=== PATIENT | male | born 1995 | race Caucasian/White ===

== ENCOUNTER 2018-04-08 15:50 | Emergency (ER) | payer BC ==
[2018-04-08 16:13] VITALS: BP 118/64
[2018-04-08] MEDS ORDERED: Lidocaine 1%* 5 ML VIAL INJ ONE (16:31)
--- NOTE | 2018-04-08 16:33 | UC ---
General HPI - HPI Summary HPI Summary: cut R brow just [employer] while wrestling at [facility]. [place] sent here for stitches. No MANN, Neck pain or LOC. Tetanus is UTD. - History of Current Complaint Chief Complaint: UCLaceration Stated Complaint: RIGHT SIDE FACIAL LACERATION Time Seen by Provider: 04/08/18 16:27 Hx Obtained From: Patient Onset/Duration: Sudden Onset Timing: Constant Pain Intensity: 2 Associated Signs & Symptoms: Negative: Fever, Headache, Nausea - Allergy/Home Medications Allergies/Adverse Reactions: Allergies Allergy/AdvReac Type Severity Reaction Status Date / Time No Known Allergies Allergy Verified 04/08/18 16:10 Home Medications: Home Medications NK [No Home Medications Reported] 04/08/18 [History Confirmed 04/08/18] PMH/Surg Hx/FS Hx/Imm Hx Previously Healthy: Yes - Surgical History Surgical History: None - Family History Known Family History: Positive: None - Social History Occupation: Student Lives: Dormitory/Roommates Alcohol Use: Rare Substance Use Type: None Smoking Status (MU): Never Smoked Tobacco - Immunization History Most Recent Tetanus Shot: UTD Hx Tetanus, Diphtheria Vaccination: Yes Vaccination Up to Date: Yes Review of Systems Constitutional: Negative Skin: Negative Eyes: Negative ENT: Negative Respiratory: Negative Cardiovascular: Negative Gastrointestinal: Negative Genitourinary: Negative Motor: Negative Neurovascular: Negative Musculoskeletal: Negative Neurological: Negative Psychological: Negative Is Patient Immunocompromised?: No All Other Systems Reviewed And Are Negative: Yes Physical Exam Triage Information Reviewed: Yes Appearance: Well-Appearing Vital Signs: Initial Vital Signs Temp 98.9 F 04/08/18 16:10 Pulse 107 04/08/18 16:10 Resp 14 04/08/18 16:10 BP 118/64 04/08/18 16:10 Pulse Ox 97 04/08/18 16:10 Eyes: Positive: Conjunctiva Clear, Other: - PERRL, EOMI ENT: Positive: Pharynx normal, TMs normal. Negative: Nasal congestion, Nasal drainage Neck: Positive: Supple, Nontender, No Lymphadenopathy, Other: - C-spine non tender Respiratory: Positive: Lungs clear, Normal breath sounds Cardiovascular: Positive: RRR, No Murmur Abdomen Description: Positive: Nontender, No Organomegaly, Soft Bowel Sounds: Positive: Present Musculoskeletal: Positive: ROM Intact Neurological: Positive: Alert, Other: - CN 2-12 grossly intact. normal gait. Psychological: Positive: Age Appropriate Behavior Skin Exam: Normal, Other - 2cm laceration galo R brow. Procedures - Laceration/Wound Repair 1 Location: face Description: Linear Anesthesia: Local, 1.0% Length, Depth and Shape: 2CM Betadine Prep?: Yes Irrigated w/ Saline (ccs): 50 Laceration/Wound Explored: clean Closure: Single Layer Debridement: NONE Suture Type: Prolene Number of Sutures: 6 Sterile Dressing Applied?: Yes - ANTIBIOTIC OINTMENT TO SITE Course/Dx - Differential Dx - Multi-Symptom Provider Diagnoses: 2CM LACERATION R BROW Discharge - Sign-Out/Discharge Documenting (check all that apply): Patient Departure All imaging exams completed and their final reports reviewed: No Studies - Discharge Plan Condition: Stable Disposition: HOME Patient Education Materials: Care For Your Stitches (DC) Referrals: No Primary Care Phys,NOPCP [Primary Care Provider] - Additional Instructions: HAVE STITCHES REMOVED IN 5 DAYS. YOU MAY RETURN HERE OR GO TO [facility] - Billing Disposition and Condition Condition: STABLE Disposition: Home
== END 2018-04-08 17:06 | disposition home or self-care (01) ==
LOC: EDBD → UCCORT 15:50
DX: S01.81XA Laceration without foreign body of other part of head, initial encounter (principal); W45.8XXA Other foreign body or object entering through skin, initial encounter; Y93.72 Activity, wrestling; Y92.9 Unspecified place or not applicable
CPT/HCPCS: 12001; 99201; G0463